=== PATIENT | male | born 1990 | race Caucasian/White ===

== ENCOUNTER → 2020-03-01 | Outpatient (CLI) | payer MEDICAID, SELFPAY ==
[2020-03-01 11:24] VITALS: BMI 32.8
== END | disposition home or self-care (01) ==
LOC: LABSPEC 15:35
PROVIDERS: Visit Provider Physician Assistant Surgical
DX: B37.9 Candidiasis, unspecified (principal)
CPT/HCPCS: 87086; 87491; 87591